=== PATIENT | female | born 1995 | race Caucasian/White ===

== ENCOUNTER 2023-06-11 17:02 | Emergency (ER) | payer OTHER ==
[~2023-06-11] VITALS: Ht 154.9 cm; Wt 54.4 kg
[2023-06-11] MEDS ORDERED: CLOT15CR5 TP (17:34)
[2023-06-11 17:35] VITALS: O2SAT 98
== END 2023-06-11 17:39 | disposition home or self-care (01) ==
LOC: ER 17:04
DX: R21 Rash and other nonspecific skin eruption (principal); Z79.899 Other long term (current) drug therapy
CPT/HCPCS: A4663

== ENCOUNTER 2023-09-04 21:37 | Emergency (ER) | payer OTHER ==
[~2023-09-04] VITALS: Ht 157.5 cm; Wt 44.9 kg
[~2023-09-04 21:37] MED LIST: CLOT15CR5 TP
[2023-09-04 22:47] LABS: BASOPHILS # (AUTO) 0.2 K/UL (0.0-0.2); BASOPHILS % (AUTO) 1.8 % (0.0-2.0); EOSINOPHILS # (AUTO) 0.1 K/uL (0.0-0.7); EOSINOPHILS % (AUTO) 0.8 % (0.0-7.0); HEMATOCRIT 35.9 % (31.2-41.9); HEMOGLOBIN 12.4 g/dL (10.9-14.3); LYMPHOCYTES # (AUTO) 1.6 K/uL (0.8-4.8); LYMPHOCYTES % (AUTO) 17.7 % (20.5-51.5); MEAN CORPUSCULAR HEMOGLOBIN 30.3 uug (24.7-32.8); MEAN CORPUSCULAR HGB CONC 35 g/dL (32.3-35.6); MONOCYTES # (AUTO) 0.6 K/uL (0.1-1.30); MONOCYTES % (AUTO) 6.4 % (0.0-11.0); NEUTROPHILS # (AUTO) 6.6 K/uL (1.8-8.9); NEUTROPHILS % (AUTO) 73.3 % (38.5-71.5); PLATELET COUNT (AUTO) 180 K/uL (179-408); RED BLOOD CELL COUNT(AUTO) 4.08 MIL/uL (3.63-4.92); RED CELL DISTRIBUTION WIDTH 12.7 % (12.3-17.7)
[2023-09-04 22:49] LABS: DIFFERENTIAL COMMENT 1
[2023-09-04 23:00] LABS: ALANINE AMINOTRANSFERASE 28 U/L (14-59); ALBUMIN 3.5 g/dL (3.4-5.0); ALKALINE PHOSPHATASE 49 U/L (50-136); ASPARTATE AMINOTRANSFERASE 16 U/L (15-37); BILIRUBIN,DIRECT 0.2 mg/dL (0.0-0.2); CALCIUM 8.4 mg/dL (8.5-10.1); CARBON DIOXIDE 25 mmol/L (21-32); CHLORIDE 102 mmol/L (98-107); CREATININE 0.5 mg/dL (0.6-1.3); GLUCOSE 96 mg/dL (74-106); LIPASE 40 U/L (16-77); POTASSIUM 3.3 mmol/L (3.5-5.1); SODIUM SERUM 135 mmol/L (136-145); TOTAL PROTEIN, SERUM 6.8 g/dL (6.4-8.2); UREA NITROGEN, BLOOD 20 mg/dL (7-18)
[2023-09-04 23:07] LABS: *BLOOD, URINE NEGATIVE (NEGATIVE); *CLARITY,URINE CLEAR (CLEAR); *COLOR,URINE YELLOW (YELLOW); *KETONES,URINE 1+ (NEGATIVE); *PROTEIN,URINE 1+ (NEGATIVE); LEUKOCYTE ESTERASE ,URINE NEGATIVE (NEGATIVE); NITRITE, URINE NEGATIVE (NEGATIVE); UGLUCOSE NEGATIVE (NEGATIVE)
[2023-09-04 23:11] LABS: *BILIRUBIN,URIN 1+ (NEGATIVE)
[2023-09-04 23:15] LABS: BACTERIA,URINE MODERATE /HPF (NONE SEEN); SQUAMOUS EPITHELIAL CELL,UR MANY /HPF (NONE SEEN)
[2023-09-04 23:16] LABS: RBC,URINE 0-3 /HPF (0-3); WBC,URINE 0-3 /HPF (0-3)
[2023-09-04 23:24] LABS: PREGNANCY TEST SERUM QUAN < 1 miul/L (0-6)
[2023-09-04] MEDS ORDERED: POTASSIUM BICARBONATE/CIT AC 25 MEQ TABLET.EFF PO ONE (23:30)
[2023-09-04] MEDS ORDERED: POTASSIUM BICARBONATE/CIT AC 25 MEQ TABLET.EFF ONE (23:35)
[2023-09-05 01:24] VITALS: BP 111/70; O2SAT 100
== END 2023-09-05 01:25 | disposition home or self-care (01) ==
LOC: ER 21:38
DX: R10.84 Generalized abdominal pain (principal); R10.2 Pelvic and perineal pain; E86.0 Dehydration; E87.6 Hypokalemia; Z79.899 Other long term (current) drug therapy
CPT/HCPCS: 36415; 74018; 83690; 85025; A4606; A4663

== ENCOUNTER 2023-11-09 14:23 | Emergency (ER) | payer OTHER ==
[~2023-11-09] VITALS: Ht 157.5 cm; Wt 44.9 kg
[2023-11-09 15:28] LABS: *BILIRUBIN,URIN NEGATIVE (NEGATIVE); *BLOOD, URINE 3+ (NEGATIVE); *CLARITY,URINE SLIGHTLY CLOUDY (CLEAR); *COLOR,URINE YELLOW (YELLOW); *KETONES,URINE NEGATIVE (NEGATIVE); *PROTEIN,URINE 1+ (NEGATIVE); *UROBILINOGEN,URINE 0.2 E.U./dl (NORMAL); LEUKOCYTE ESTERASE ,URINE 2+ (NEGATIVE); NITRITE, URINE NEGATIVE (NEGATIVE); UGLUCOSE NEGATIVE (NEGATIVE)
[2023-11-09 16:12] LABS: BACTERIA,URINE NONE SEEN /HPF (NONE SEEN); SQUAMOUS EPITHELIAL CELL,UR MODERATE /HPF (NONE SEEN); WBC,URINE 20-50 /HPF (0-3)
[2023-11-09] MEDS ORDERED: AMOX-427 PO (16:54)
[2023-11-09] MEDS ORDERED: FOSFOMYCIN TROMETHAMINE 3 GM PACKET ONE (16:58)
[2023-11-09] MEDS ORDERED: FOSFOMYCIN TROMETHAMINE 3 GM PACKET PO ONE (17:00)
[2023-11-09 17:06] VITALS: BP 110/69; O2SAT 98
== END 2023-11-09 17:07 | disposition home or self-care (01) ==
LOC: ER 14:23
DX: N39.0 Urinary tract infection, site not specified (principal); Z79.899 Other long term (current) drug therapy
CPT/HCPCS: A4606; A4663

== ENCOUNTER 2024-11-02 19:53 | Emergency (ER) | payer OTHER ==
[~2024-11-02 19:53] MED LIST changes: +AMOX-427 PO
== END 2024-11-02 21:40 | disposition left against medical advice (07) ==
LOC: ER 19:53
DX: R10.9 Unspecified abdominal pain (principal); Z53.21 Procedure and treatment not carried out due to patient leaving prior to being seen by health care provider